=== PATIENT | female | born 1980 | race African-American/Black ===

== ENCOUNTER 2024-01-30 18:13 | Emergency (ER) | payer MEDICAID ==
[~2024-01-30] VITALS: Ht 167.6 cm; Wt 72.6 kg
[2024-01-30] MEDS ORDERED: AMLO10TA59 PO (19:18)
[2024-01-30] MEDS ORDERED: ALPR0.5T8 PO (19:19)
[2024-01-30] MEDS ORDERED: OXYC-133 PO (19:20)
[2024-01-30] MEDS ORDERED: HYDR-3980 PO ×2 (19:20→23:12)
[2024-01-30] MEDS ORDERED: LORAZEPAM 2 MG/1 ML VIAL ONE (20:55)
[2024-01-30] MEDS: IV NORMAL SALINE 1000 ML BAG IV ONE (21:00)
[2024-01-30] MEDS: LORAZEPAM 2 MG/1 ML VIAL IV ONE (21:00)
[2024-01-30 21:01] LABS: BASOPHILS # (AUTO) 0.1 K/UL (0.0-0.2); BASOPHILS % (AUTO) 0.9 % (0.0-2.0); EOSINOPHILS # (AUTO) 0.2 K/uL (0.0-0.7); EOSINOPHILS % (AUTO) 2.7 % (0.0-7.0); HEMATOCRIT 39.6 % (31.2-41.9); LYMPHOCYTES # (AUTO) 3.6 K/uL (0.8-4.8); LYMPHOCYTES % (AUTO) 51.6 % (20.5-51.5); MEAN CORPUSCULAR HEMOGLOBIN 30.7 uug (24.7-32.8); MEAN CORPUSCULAR HGB CONC 33 g/dL (32.3-35.6); MEAN CORPUSCULAR VOLUME 93.2 fL (75.5-95.3); MONOCYTES # (AUTO) 0.5 K/uL (0.1-1.30); MONOCYTES % (AUTO) 7.1 % (0.0-11.0); NEUTROPHILS # (AUTO) 2.6 K/uL (1.8-8.9); NEUTROPHILS % (AUTO) 37.7 % (38.5-71.5); PLATELET COUNT (AUTO) 252 K/uL (179-408); RED BLOOD CELL COUNT(AUTO) 4.25 MIL/uL (3.63-4.92); RED CELL DISTRIBUTION WIDTH 14.5 % (12.3-17.7); WHITE BLOOD COUNT (AUTO) 6.9 K/uL (3.8-11.8)
[2024-01-30 21:02] LABS: DIFFERENTIAL COMMENT 1
[2024-01-30 21:09] LABS: *BILIRUBIN,URIN NEGATIVE (NEGATIVE); *BLOOD, URINE NEGATIVE (NEGATIVE); *CLARITY,URINE CLEAR (CLEAR); *COLOR,URINE YELLOW (YELLOW); *KETONES,URINE NEGATIVE (NEGATIVE); *PROTEIN,URINE NEGATIVE (NEGATIVE); *UROBILINOGEN,URINE 0.2 E.U./dl (NORMAL); LEUKOCYTE ESTERASE ,URINE NEGATIVE (NEGATIVE); NITRITE, URINE NEGATIVE (NEGATIVE); UGLUCOSE NEGATIVE (NEGATIVE)
[2024-01-30 21:12] LABS: CALCIUM 9.1 mg/dL (8.5-10.1); CARBON DIOXIDE 25 mmol/L (21-32); CHLORIDE 104 mmol/L (98-107); CREATININE 0.6 mg/dL (0.6-1.3); GLUCOSE 90 mg/dL (74-106); POTASSIUM 3.6 mmol/L (3.5-5.1); SODIUM SERUM 140 mmol/L (136-145); UREA NITROGEN, BLOOD 12 mg/dL (7-18)
[2024-01-30 21:12] LABS: *URINE HCG, QUAL NEGATIVE (NEGATIVE)
[2024-01-30 21:16] LABS: ETHANOL < 3 MG/DL (0-10)
[2024-01-30 21:23] LABS: *AMPHETAMINE, URINE NEGATIVE (NEGATIVE); *BARBITURATE, URINE NEGATIVE (NEGATIVE); *BENZODIAZEPINE, URINE POSITIVE (NEGATIVE); *CANNABINOID, URINE NEGATIVE (NEGATIVE); *COCCAINE, URINE NEGATIVE (NEGATIVE); *OPIATE, URINE POSITIVE (NEGATIVE); *PHENCYCLIDINE SCREEN,URINE NEGATIVE (NEGATIVE); FENTANYL, URINE NEGATIVE (NEGATIVE)
[2024-01-30 21:30] LABS: ALANINE AMINOTRANSFERASE 26 U/L (14-59); ALBUMIN 3.5 g/dL (3.4-5.0); ALKALINE PHOSPHATASE 124 U/L (50-136); ASPARTATE AMINOTRANSFERASE 15 U/L (15-37); BILIRUBIN,DIRECT 0.1 mg/dL (0.0-0.2); BILIRUBIN,TOTAL 0.2 mg/dL (0.2-1.0); TOTAL PROTEIN, SERUM 7.8 g/dL (6.4-8.2)
[2024-01-30] MEDS ORDERED: HYDROCODONE/APAP 10-325 MG TABLET ONE ×2 (22:02→22:10)
[2024-01-30] MEDS: HYDROCODONE/APAP 10-325 MG TABLET PO ONE (22:13)
[2024-01-30] MEDS ORDERED: ALPR0.255 PO (23:43)
[2024-01-31 02:38] VITALS: BP 130/86; TEMP 97.8; O2SAT 100
== END 2024-01-30 23:45 | disposition home or self-care (01) ==
LOC: ER 18:14
DX: G89.29 Other chronic pain (principal); R10.2 Pelvic and perineal pain; R10.31 Right lower quadrant pain; R10.32 Left lower quadrant pain; Z86.2 Personal history of diseases of the blood and blood-forming organs and certain disorders involving the immune mechanism; Z79.899 Other long term (current) drug therapy
CPT/HCPCS: 80076; 80048; 81003; 84703; 85025; 84484; 36415; 93005; 74176; 99285; 96361; 96374; 83605; 80320; 80307; J2060; J7040; A4606; A4663; G0480

== ENCOUNTER 2024-03-22 02:58 | Emergency (ER) | payer MEDICAID ==
[~2024-03-22] VITALS: Ht 167.6 cm; Wt 72.6 kg
[~2024-03-22 02:58] MED LIST: ALPR0.255 PO; ALPR0.5T8 PO; AMLO10TA59 PO; HYDR-3980 PO; OXYC-133 PO
[2024-03-22 03:05] VITALS: O2SAT 100
[2024-03-22] MEDS ORDERED: HYDR-3980 PO (03:41)
[2024-03-22] MEDS ORDERED: ALPR1TAB2 PO (03:41)
[2024-03-22] MEDS ORDERED: ALPRAZOLAM 0.5 MG TABLET ONE (03:45)
[2024-03-22] MEDS ORDERED: HYDROCODONE/APAP 10-325 MG TABLET ONE (03:46)
[2024-03-22] MEDS: HYDROCODONE/APAP 10-325 MG TABLET PO ONE (03:50)
[2024-03-22] MEDS: ALPRAZOLAM 0.25 MG TABLET PO ONE (03:50)
== END 2024-03-22 03:56 | disposition home or self-care (01) ==
LOC: ER 03:02
DX: G89.29 Other chronic pain (principal); R10.30 Lower abdominal pain, unspecified; M54.50 Low back pain, unspecified; D25.9 Leiomyoma of uterus, unspecified; M54.16 Radiculopathy, lumbar region; D64.9 Anemia, unspecified; Z79.899 Other long term (current) drug therapy; Z79.891 Long term (current) use of opiate analgesic
CPT/HCPCS: A4606; A4663

== ENCOUNTER 2024-07-23 20:24 | Emergency (ER) | payer MEDICAID ==
[~2024-07-23] VITALS: Ht 167.6 cm; Wt 72.6 kg
[~2024-07-23 20:24] MED LIST changes: +ALPR1TAB2 PO
[2024-07-23] MEDS ORDERED: ALPRAZOLAM 0.5 MG TABLET ONE (21:47)
[2024-07-23] MEDS: HYDROCODONE/APAP 10-325 MG TABLET PO ONE (21:56)
[2024-07-23] MEDS: ALPRAZOLAM 0.25 MG TABLET PO ONE (21:56)
[2024-07-23 21:57] LABS: BASOPHILS # (AUTO) 0.1 K/UL (0.0-0.2); BASOPHILS % (AUTO) 0.9 % (0.0-2.0); EOSINOPHILS # (AUTO) 0.2 K/uL (0.0-0.7); EOSINOPHILS % (AUTO) 2.5 % (0.0-7.0); HEMATOCRIT 41.5 % (31.2-41.9); HEMOGLOBIN 13.9 g/dL (10.9-14.3); LYMPHOCYTES # (AUTO) 3.1 K/uL (0.8-4.8); MEAN CORPUSCULAR HEMOGLOBIN 31.5 uug (24.7-32.8); MEAN CORPUSCULAR HGB CONC 34 g/dL (32.3-35.6); MEAN CORPUSCULAR VOLUME 93.8 fL (75.5-95.3); MONOCYTES # (AUTO) 0.7 K/uL (0.1-1.30); MONOCYTES % (AUTO) 10.2 % (0.0-11.0); NEUTROPHILS # (AUTO) 2.9 K/uL (1.8-8.9); NEUTROPHILS % (AUTO) 41.4 % (38.5-71.5); PLATELET COUNT (AUTO) 192 K/uL (179-408); RED BLOOD CELL COUNT(AUTO) 4.42 MIL/uL (3.63-4.92); RED CELL DISTRIBUTION WIDTH 15.3 % (12.3-17.7); WHITE BLOOD COUNT (AUTO) 6.9 K/uL (3.8-11.8)
[2024-07-23 21:59] LABS: *BILIRUBIN,URIN NEGATIVE (NEGATIVE); *BLOOD, URINE 1+ (NEGATIVE); *CLARITY,URINE CLEAR (CLEAR); *COLOR,URINE YELLOW (YELLOW); *KETONES,URINE NEGATIVE (NEGATIVE); *PROTEIN,URINE NEGATIVE (NEGATIVE); DIFFERENTIAL COMMENT 1; LEUKOCYTE ESTERASE ,URINE NEGATIVE (NEGATIVE); NITRITE, URINE NEGATIVE (NEGATIVE); UGLUCOSE NEGATIVE (NEGATIVE)
[2024-07-23 22:00] LABS: *URINE HCG, QUAL NEGATIVE (NEGATIVE)
[2024-07-23 22:02] LABS: BACTERIA,URINE FEW /HPF (NONE SEEN); SQUAMOUS EPITHELIAL CELL,UR FEW /HPF (NONE SEEN); WBC,URINE 0-3 /HPF (0-3)
[2024-07-23 22:05] LABS: CALCIUM 9.1 mg/dL (8.5-10.1); CARBON DIOXIDE 29 mmol/L (21-32); CHLORIDE 103 mmol/L (98-107); CREATININE 0.6 mg/dL (0.6-1.3); GLUCOSE 90 mg/dL (74-106); POTASSIUM 4.1 mmol/L (3.5-5.1); SODIUM SERUM 137 mmol/L (136-145); UREA NITROGEN, BLOOD 8 mg/dL (7-18)
[2024-07-23 22:10] LABS: ALANINE AMINOTRANSFERASE 25 U/L (14-59); ALBUMIN 3.5 g/dL (3.4-5.0); ALKALINE PHOSPHATASE 117 U/L (50-136); ASPARTATE AMINOTRANSFERASE 13 U/L (15-37); BILIRUBIN,DIRECT < 0.1 mg/dL (0.0-0.2); BILIRUBIN,TOTAL 0.4 mg/dL (0.2-1.0); LIPASE 21 U/L (16-77); TOTAL PROTEIN, SERUM 7.7 g/dL (6.4-8.2)
[2024-07-24] MEDS ORDERED: HYDR-4209 PO ×2 (00:23→00:27)
[2024-07-24] MEDS ORDERED: HYDR-501 PO (00:27)
[2024-07-24 00:47] VITALS: BP 135/63; TEMP 98.7; O2SAT 97
== END 2024-07-24 00:48 | disposition home or self-care (01) ==
LOC: ER 20:24
DX: R10.2 Pelvic and perineal pain (principal); G89.29 Other chronic pain; M54.50 Low back pain, unspecified; F41.9 Anxiety disorder, unspecified; N89.8 Other specified noninflammatory disorders of vagina; Z86.018 Personal history of other benign neoplasm; Z87.891 Personal history of nicotine dependence; Z90.721 Acquired absence of ovaries, unilateral; Z97.5 Presence of (intrauterine) contraceptive device; Z98.890 Other specified postprocedural states
CPT/HCPCS: 36415; 76856; 83690; 84703; 85025; A4606; A4663

== ENCOUNTER 2025-01-05 23:13 | Emergency (ER) | payer MEDICAID ==
[~2025-01-05] VITALS: Ht 167.6 cm; Wt 73.5 kg
[~2025-01-05 23:13] MED LIST changes: +HYDR-4209 PO; +HYDR-501 PO
[2025-01-05] MEDS ORDERED: lexapro (23:30)
[2025-01-06] MEDS ORDERED: KETOROLAC TROMETHAMINE 15 MG INJ ONE (00:02)
[2025-01-06] MEDS ORDERED: ONDANSETRON 4 MG/2 ML VIAL ONE (00:02)
[2025-01-06] MEDS ORDERED: HYDROMORPHONE 1 MG/1 ML DISP.SYRIN ONE ×2 (00:03→01:44)
[2025-01-06 00:06] LABS: BASOPHILS # (AUTO) 0.1 K/UL (0.0-0.2); BASOPHILS % (AUTO) 0.8 % (0.0-2.0); DIFFERENTIAL COMMENT 1; EOSINOPHILS # (AUTO) 0.1 K/uL (0.0-0.7); EOSINOPHILS % (AUTO) 1.7 % (0.0-7.0); HEMOGLOBIN 14.6 g/dL (10.9-14.3); LYMPHOCYTES # (AUTO) 2.9 K/uL (0.8-4.8); MEAN CORPUSCULAR HEMOGLOBIN 31.8 uug (24.7-32.8); MEAN CORPUSCULAR HGB CONC 34 g/dL (32.3-35.6); MEAN CORPUSCULAR VOLUME 93.7 fL (75.5-95.3); MONOCYTES # (AUTO) 0.4 K/uL (0.1-1.30); MONOCYTES % (AUTO) 5.9 % (0.0-11.0); NEUTROPHILS # (AUTO) 3.8 K/uL (1.8-8.9); NEUTROPHILS % (AUTO) 51.6 % (38.5-71.5); PLATELET COUNT (AUTO) 196 K/uL (179-408); RED BLOOD CELL COUNT(AUTO) 4.59 MIL/uL (3.63-4.92); RED CELL DISTRIBUTION WIDTH 13.7 % (12.3-17.7); WHITE BLOOD COUNT (AUTO) 7.3 K/uL (3.8-11.8)
[2025-01-06] MEDS: IV NORMAL SALINE 1000 ML BAG IV ONE (00:06)
[2025-01-06] MEDS: HYDROMORPHONE 1 MG/1 ML DISP.SYRIN IV ONE ×2 (00:07→01:47)
[2025-01-06] MEDS: ONDANSETRON 4 MG/2 ML VIAL IV ONE (00:07)
[2025-01-06] MEDS: KETOROLAC TROMETHAMINE 15 MG INJ IVP ONE (00:07)
[2025-01-06 00:12] LABS: CALCIUM 9.4 mg/dL (8.5-10.1); CARBON DIOXIDE 24 mmol/L (21-32); CHLORIDE 103 mmol/L (98-107); CREATININE 0.5 mg/dL (0.6-1.3); GLUCOSE 120 mg/dL (74-106); POTASSIUM 5.6 mmol/L (3.5-5.1); SODIUM SERUM 137 mmol/L (136-145); UREA NITROGEN, BLOOD 9 mg/dL (7-18)
[2025-01-06 00:18] LABS: ALANINE AMINOTRANSFERASE 16 U/L (14-59); ALBUMIN 3.3 g/dL (3.4-5.0); ALKALINE PHOSPHATASE 111 U/L (50-136); ASPARTATE AMINOTRANSFERASE 34 U/L (15-37); BILIRUBIN,DIRECT < 0.1 mg/dL (0.0-0.2); BILIRUBIN,TOTAL 0.5 mg/dL (0.2-1.0); LIPASE 22 U/L (16-77); TOTAL PROTEIN, SERUM 7.9 g/dL (6.4-8.2)
[2025-01-06 01:14] LABS: *BILIRUBIN,URIN NEGATIVE (NEGATIVE); *BLOOD, URINE NEGATIVE (NEGATIVE); *CLARITY,URINE CLEAR (CLEAR); *COLOR,URINE YELLOW (YELLOW); *KETONES,URINE NEGATIVE (NEGATIVE); *PROTEIN,URINE NEGATIVE (NEGATIVE); LEUKOCYTE ESTERASE ,URINE NEGATIVE (NEGATIVE); NITRITE, URINE NEGATIVE (NEGATIVE); UGLUCOSE NEGATIVE (NEGATIVE)
[2025-01-06 01:16] LABS: *URINE HCG, QUAL NEGATIVE (NEGATIVE)
[2025-01-06] MEDS ORDERED: IBUP-1490 PO (01:34)
[2025-01-06] MEDS ORDERED: ONDA4TAB11 PO (01:34)
[2025-01-06 01:39] VITALS: BP 136/106; O2SAT 99
== END 2025-01-06 01:50 | disposition home or self-care (01) ==
LOC: ER 23:21
DX: K80.20 Calculus of gallbladder without cholecystitis without obstruction (principal); G89.29 Other chronic pain; F17.200 Nicotine dependence, unspecified, uncomplicated; Z90.721 Acquired absence of ovaries, unilateral; Z98.890 Other specified postprocedural states; Z86.59 Personal history of other mental and behavioral disorders
CPT/HCPCS: 99285; 76705; 80076; 80048; 83690; 85025; 36415; 96374; 96375; 96361; 81003; 84703; 96376; J1885; J2405; J1171 ×2; J7040; A4606; A4663